=== PATIENT | male | born 1965 | race Caucasian/White ===

== ENCOUNTER 2022-02-01 14:02 | Emergency (ER) | payer OTHER, SELFPAY ==
--- NOTE | ~2022-02-01 | XR_ITS ---
EXAMINATION: XR chest 2V DATE: 02/01/2022 17:27 INDICATION: Fever TECHNIQUE: PA and lateral views of the chest are obtained. COMPARISON: None available FINDINGS: The lungs are free of acute opacities. No pleural effusion or pneumothorax. The cardiomedia stinal silhouette is normal. There is mild thoracic spondylosis. IMPRESSION: 1. No acute cardiopulmonary abnormality. Reviewed, dictated and finalized at location A. MERCE MARKETING SPECIALIST
--- NOTE | ~2022-02-01 | CT_ITS ---
EXAMINATION: CT abdomen pelvis w con DATE: 02/01/2022 18:43 INDICATION: Intractable vomiting. Elevated lipase. TECHNIQUE: Computed tomography (CT) of the abdomen and pelvis was performed with 100 cc Omnipaque 350 intravenous contrast. The dose-length product was 638.44 mGy-cm. Automated exposure control and iter ative reconstruction technique were employed. COMPARISON: None. FINDINGS: Lung bases are unremarkable. No pleural or pericardial effusion. Heart size normal. There a re at least 3 hypovascular lesions with peripheral enhancement in the left hepatic lobe. There is a f ourth lesion in the right hepatic lobe. In the absence of known malignancy these are likely benign he mangiomas. No free air or free fluid. No acute osseous abnormality. There are calcified granulomas of the spleen. The pancreas, adrenal glands are unremarkable. There are nonobstructing bilateral renal stones. No ureteral stones or hydronephrosis. Nonobstructive bowel gas pattern. No significant vascul ar abnormality. No lymphadenopathy. No acute osseous abnormality. IMPRESSION: 1. No acute abdominal abnormality. 2: At least 4 hypervascular lesions with peripheral enhancement in the liver, most likely benign parker ngiomas in the absence of known malignancy. 3: Nonobstructing bilateral nephrolithiasis. Reviewed, dictated and finalized at location A. NT SUCCESS SPECIALIST IMPRESSION: 1. No acute abdominal abnormality. 2: At least 4 hypervascular lesions with peripheral enhancement in the liver, m ost likely benign hemangiomas in the absence of known malignancy. 3: Nonobstructing bilateral nephrolithiasis.
[2022-02-01 14:27] VITALS: BP 127/74; PULSE 94; RESP 16; TEMP 37.4; O2SAT 100
[2022-02-01 15:23] LABS: Influenza A QL RT-PCR Negative (Negative); Influenza B QL RT-PCR Negative (Negative); SARS-CoV-2 RNA PCR Negative
--- NOTE | 2022-02-01 16:30 | ED.URI ---
HPI - URI/Sore Throat General Chief Complaint: Upper Respiratory Infection Stated Complaint: Fever, N/V/D and RUSH x 6 days Time Seen by Provider: 02/01/22 15:55 History of Present Illness HPI Narrative: Patient is a 56-year-old male with a history of hypertension, hyperlipidemia presenting with URI symptoms. Patient states that for the last 6 days he has had cough and nasal congestion. States he is also had an intermittent headache. Over the last several days he has also had vomiting and diarrhea. States that he started antibiotics several days ago after calling his PCP but he keeps throwing them up. He denies abdominal pain or chest pain. No numbness or weakness, lightheadedness, dysuria, flank pain, leg swelling, rashes. Related Data Allergies Allergy/AdvReac Type Severity Reaction Status Date / Time No Known Allergies Allergy Verified 02/01/22 14:04 Review of Systems Review of Systems: All systems reviewed & are unremarkable except as noted in HPI and below Exam Narrative: GENERAL: Appears uncomfortable but nontoxic and in no acute distress HEAD: Normocephalic, atraumatic. EYES: PERRLA and EOMI. ENT: Nares clear, + nasal congestion or epistaxis. Mucous membranes moist. NECK: Supple. CHEST: Clear to auscultation. No respiratory distress. HEART: Regular rate and rhythm. No murmur heard. Normal peripheral pulses. ABDOMEN: Soft, nontender, nondistended, normal active bowel sounds. EXTREMITIES: Normal range of motion. No edema. SKIN: Warm, dry, no rash. NEURO: No focal deficits. Alert and oriented x3. PSYCH: Normal mood and affect. Course Vital Signs Vital signs: Vital Signs Temperature 99.3 F 02/01/22 14:27 Pulse Rate 94 02/01/22 14:27 Respiratory Rate 16 02/01/22 14:27 Blood Pressure 127/74 02/01/22 14:27 Pulse Oximetry 100 02/01/22 14:27 Oxygen Delivery Room Air 02/01/22 14:27 Temperature 99 F 02/01/22 20:33 Pulse Rate 82 02/01/22 20:33 Respiratory Rate 18 02/01/22 20:33 Blood Pressure 109/66 02/01/22 20:33 Pulse Oximetry 97 02/01/22 20:33 Oxygen Delivery Room Air 02/01/22 14:27 MDM - URI/Sore Throat MDM Narrative Medical decision making narrative: Patient is a 56-year-old male presenting with URI symptoms. Vitals within normal limits. Patient is negative for influenza and COVID-19. Will check labs and chest x-ray. Blood work is concerning for mild hypokalemia and mildly elevated lipase. CT abdomen pelvis shows no acute intra-abdominal abnormalities. Chest x-ray shows no acute abnormalities. Patient received migraine cocktail and reports improvement in his symptoms. He is tolerating p.o. intake. Patient has an appointment with his PCP in 2 days. Discussed appropriate supportive care and return precautions. Patient voiced understanding and is agreeable with plan. Discharged in stable condition. Lab Data 02/01/22 16:50 02/01/22 16:50 Labs: Lab Results 02/01/22 02/01/22 02/01/22 Range/Units 14:38 16:30 16:50 WBC 4.6 (4.5-10.0) K/mm3 RBC 3.85 L (4.6-6.20) M/mm3 Hgb 11.9 L (14.0-18.0) g/dL Hct 34.7 L (42.0-52.0) % MCV 90.1 (80-100) fl MCH 30.9 (26-34) pg MCHC 34.3 (32-36) g/dl RDW 11.6 (11.5-14.5) % Plt Count 122 L (150-375) k/mm3 MPV 9.3 (7.4-10.4) fl Immature Gran % (Auto) Not Reportable Neut % (Auto) Not Reportable Lymph % (Auto) Not Reportable Nelson % (Auto) Not Reportable Eos % (Auto) Not Reportable Baso % (Auto) Not Reportable Lymph # (Auto) Not Reportable Nelson # (Auto) Not Reportable Eos # (Auto) Not Reportable Baso # (Auto) Not Reportable Abs Immat Gran (auto) Not Reportable Absolute Neuts (auto) Not Reportable Absolute Nucleated RBC Not Reportable Total Counted 100 Neutrophils % (Manual) 76 H (46-73) % Band Neutrophils % 6 (0-6) % Lymphocytes % (Manual) 13.0 L (18-44) % Mo
[2022-02-01] MEDS: SODIUM CHLORIDE 0.9% IV 1,000 ML 999 ML IV CONT ×2 (16:44→19:06)
[2022-02-01] MEDS: KETOROLAC 15 MG/ML VIAL (*BKC) IV PUSH ×2 (16:45→19:07)
[2022-02-01 16:52] VITALS: TEMP 38.6
[2022-02-01 17:01] LABS: Hematocrit 34.7 % (42.0-52.0); Hemoglobin 11.9 g/dL (14.0-18.0); Mean Corpuscular HGB Conc 34.3 g/dl (32-36); Mean Corpuscular Hemoglobin 30.9 pg (26-34); Mean Corpuscular Volume 90.1 fl (80-100); Mean Platelet Volume 9.3 fl (7.4-10.4); Platelet Count Result 122 k/mm3 (150-375); Red Blood Count 3.85 M/mm3 (4.6-6.20); Red Cell Distribution Width 11.6 % (11.5-14.5); White Blood Count 4.6 K/mm3 (4.5-10.0)
[2022-02-01 17:17] LABS: Alanine Aminotransferase 141 U/L (6-50); Albumin Level 3.8 g/dL (3.5-5.1); Alkaline Phosphatase 131 U/L (38-126); Anion Gap 4 mmol/L (8-16); Aspartate Amino Transferase 106 U/L (17-59); Bilirubin,Total 0.6 mg/dL (0.2-1.3); Blood Urea Nitrogen 18 mg/dL (9-20); Carbon Dioxide 30 mmol/L (22-30); Chloride 98 mmol/L (98-107); Estimated CRCL calculation 63 ml/min; Estimated Glomerular Filt Rate > 60; Glucose 158 mg/dL (65-110); Potassium 3.3 mmol/L (3.4-5.0); Sodium 132 mmol/L (137-145)
[2022-02-01 17:20] LABS: Band Neutrophils Percent 6 % (0-6); Basophils Absolute Manual 0.04 K/mm3 (0.0-0.1); Basophils Percent Manual 1 % (0-1); Lymphocytes Absolute Manual 0.59 K/mm3 (1.1-4.5); Monocytes Absolute Manual 0.18 K/mm3 (0.1-0.90); Monocytes Percent Manual 4 % (3-9); Neutrophils Absolute Manual 3.77 K/mm3 (1.3-6.7); Neutrophils Percent Manual 76 % (46-73); Schistocytes None Seen (NORMAL); Total Cells Counted 100
[2022-02-01 18:03] LABS: Lipase 575 U/L (23-300)
[2022-02-01] MEDS: diphenhydrAMINE HCl INJ 50 MG/ML VIAL IV PUSH (19:08)
[2022-02-01] MEDS: PROCHLORPERAZINE EDISYLATE 10 MG/2 ML VIAL IV PUSH (19:09)
[2022-02-01] MEDS: DOXYCYCLINE HYCLATE 100 MG TABLET PO (20:07)
[2022-02-01 20:33] VITALS: BP 109/66; PULSE 82; RESP 18; TEMP 37.2; O2SAT 97
== END 2022-02-01 21:20 | disposition home or self-care (01) ==
PROVIDERS: Emergency Provider Emergency Medicine; PCP Internal Medicine
DX: J06.9 Acute upper respiratory infection, unspecified (principal); R11.2 Nausea with vomiting, unspecified; I10 Essential (primary) hypertension; E78.5 Hyperlipidemia, unspecified; Z20.822 Contact with and (suspected) exposure to COVID-19
CPT/HCPCS: 36415; 71046; 74177; 80053; 83690; 85025; 87636; 96361; 96365; 96375; 99284; A9270; J0131; J0780; J1200; J1885; J7030; Q9967

== ENCOUNTER 2022-02-04 17:07 | Observation (INO) | payer OTHER, SELFPAY ==
--- NOTE | ~2022-02-04 | MR_ITS ---
MRI of the abdomen: Clinical indication: Elevated lipase, hepatomegaly, hypervascular lesions. Technique: Coronal SSFSE ARC, WATER:coronal LAVA-FLEX, Coronal 2D FIESTA FatSat, Axial SSFSE BH ARC, Axial 3D DualEcho BH, Axial SSFSE-IR, Axial DWI b=500, Axial 2D FIESTA FatSat, pre and dynamic postco ntrast Axial LAVA ARC, postcontrast Coronal In and Opposed phase LAVA FLEX COMPARISON: CT scan dated 02/05/2022 Findings: Gallbladder is unremarkable. The common bile duct is normal in course and caliber. No filli ng defects are seen within the CBD. No evidence of intrahepatic biliary ductal dilatation. The pancre atic duct is normal in size. Several scattered T2 hyperintense, T1 hypointense hepatic lesions are present, which demonstrate disc ontinuous peripheral nodular postcontrast enhancement with progressive fill in over time. These are m ost consistent with hemangiomas. Largest lesion is in the left hepatic lobe, measuring 3.5 cm in diam eter. Spleen, pancreas, adrenals, kidneys appear normal. The aorta and the paraaortic regions appear normal . Impression: Multiple hepatic hemangiomas, which correlate with findings on recent CT scan. Reviewed, dictated and finalized at location [] RT CLERK Impression: Multiple hepatic hemangiomas, which correlate with findings on recent CT scan.
--- NOTE | ~2022-02-04 | CT_ITS ---
EXAMINATION: CT abdomen pelvis w con DATE: 02/05/2022 01:48 INDICATION: Nausea and vomiting. Elevated lipase. Epigastric tenderness. TECHNIQUE: Computed tomography (CT) of the abdomen and pelvis was performed with 100 mL Omnipaque 350 intravenous contrast. Automated exposure control and iterative reconstruction technique were employe d. The dose-length product was 632.64 mGy-cm. COMPARISON: CT abdomen and pelvis 02/01/2022, 03/28/2006 FINDINGS: The visualized portions of the lung bases demonstrate mild atelectasis. A calcified left marychuy ng nodule is consistent with old granulomatous disease. No pleural effusion. The heart size is normal . No pericardial effusion. There are approximately five masses with hyperenhancement in the liver marlene suring up to 3.3 cm. The gallbladder is normal. Calcifications in the spleen are consistent with old granulomatous disease. The pancreas and adrenal glands are normal. There are cysts in the kidneys marlene suring up to 7 mm on the left. There are 3 mm and 2 mm stones in right kidney. There is a 2 mm stone in left kidney. The prostate is mildly enlarged. There is prominent fat in the inguinal canals that m ay be hernias. There are no dilated loops of bowel. There are likely changes of appendectomy. There a re no pathologically enlarged lymph nodes. There is no free intraperitoneal fluid. There is an umbili mamadou hernia containing fat. There is mild thoracolumbar spondylosis. IMPRESSION: 1. Normal pancreas. 2. Hyperenhancing liver masses measuring up to 3.3 cm . In the absence of known malignancy or chronic liver disease, these findings are most likely hemangiomas. Reviewed, dictated and finalized at location A. HOLOGY ASSISTANT IMPRESSION: 1. Normal pancreas. 2. Hyperenhancing liver masses measuring up to 3.3 cm . In the absence of known malignancy or chronic liver disease, these findings are most likely hemangioma s.
[2022-02-04 17:10] VITALS: BP 132/78; PULSE 77; RESP 18; TEMP 37.2; O2SAT 100
[2022-02-04 17:54] LABS: Alanine Aminotransferase 79 U/L (6-50); Albumin Level 3.6 g/dL (3.5-5.1); Alkaline Phosphatase 115 U/L (38-126); Anion Gap 4 mmol/L (8-16); Aspartate Amino Transferase 55 U/L (17-59); Bilirubin,Total 0.6 mg/dL (0.2-1.3); Blood Urea Nitrogen 15 mg/dL (9-20); Carbon Dioxide 31 mmol/L (22-30); Chloride 98 mmol/L (98-107); Estimated CRCL calculation 71 ml/min; Estimated Glomerular Filt Rate > 60; Glucose 143 mg/dL (65-110); Lipase 786 U/L (23-300); Potassium 3.5 mmol/L (3.4-5.0); Sodium 133 mmol/L (137-145)
[2022-02-04 18:35] LABS: Hematocrit 33.3 % (42.0-52.0); Hemoglobin 11.4 g/dL (14.0-18.0); Mean Corpuscular HGB Conc 34.2 g/dl (32-36); Mean Corpuscular Hemoglobin 31.2 pg (26-34); Mean Corpuscular Volume 91.2 fl (80-100); Mean Platelet Volume 9.6 fl (7.4-10.4); Platelet Count Result 221 k/mm3 (150-375); Red Blood Count 3.65 M/mm3 (4.6-6.20); Red Cell Distribution Width 11.8 % (11.5-14.5); White Blood Count 8.2 K/mm3 (4.5-10.0)
[2022-02-04 19:27] LABS: Band Neutrophils Percent 5 % (0-6); Lymphocytes Absolute Manual 2.46 K/mm3 (1.1-4.5); Monocytes Absolute Manual 1.14 K/mm3 (0.1-0.90); Monocytes Percent Manual 14 % (3-9); Neutrophils Absolute Manual 4.59 K/mm3 (1.3-6.7); Neutrophils Percent Manual 51 % (46-73); Total Cells Counted 100
[2022-02-04 19:28] LABS: Platelet Estimate Adequate (Adequate); Schistocytes None Seen (NORMAL)
[2022-02-05] VITALS (32 sets, daily range): BP systolic 98–130; BP diastolic 54–91; PULSE 69–85; RESP 18–22; TEMP 36.1–36.8; O2SAT 92–100
--- NOTE | 2022-02-05 01:13 | ED.GENADULT ---
HPI - General Adult General Chief complaint: Nausea/Vomiting/Diarrhea <PORSHA Wilkins Last Filed: 02/05/22 04:18> Stated complaint: DEHYDRATED, PCP WANTS HIM ADMITTED <PORSHA Wilkins Last Filed: 02/05/22 04:18> Time Seen by Provider: 02/05/22 00:23 <PORSHA Wilkins Last Filed: 02/05/22 04:18> Source: patient <PORSHA Wilkins Last Filed: 02/05/22 04:18> Mode of arrival: ambulatory <PORSHA Wilkins Last Filed: 02/05/22 04:18> Limitations: no limitations <PORSHA Wilkins Last Filed: 02/05/22 04:18> History of Present Illness HPI narrative: Patient is a 56-year-old male who presents to the ED with report of nausea and vomiting. Patient reports he first became sick on 01/26 with nausea, vomiting, headaches, fevers. He was seen in the ED on 02/01, tested negative for COVID/flu. He was noted to have a mildly elevated lipase, but CT scan of his abdomen pelvis was negative. Did show hypervascular lesions of liver. Patient was given IV fluids in the ED and discharged home. Patient reports the nausea and vomiting has since persisted. He has been taking Zofran at home. He is able to keep some down some fluids. Today, he saw his PCP and was noted to have tenderness on exam to his upper abdomen. He was then referred to the ED again to r/o pancreatitis and be admitted for further w/u. He also reports having diarrhea, denies rectal bleeding, urinary sx's, CP, SOB. <PORSHA Wilkins Last Filed: 02/05/22 04:18> Related Data Home medications: Home Medications Medication Instructions Recorded Confirmed rosuvastatin 10 mg tablet 10 mg PO DAILY 02/05/22 02/05/22 valsartan 320 1 tablet PO DAILY 02/05/22 02/05/22 mg-hydrochlorothiazide 12.5 mg tablet <PORSHA Wilkins Last Filed: 02/05/22 04:18> Allergies/adverse reactions: Allergies Allergy/AdvReac Type Severity Reaction Status Date / Time No Known Allergies Allergy Verified 02/01/22 14:04 <Socorro Abdul PA-C - Last Filed: 02/05/22 04:18> Review of Systems Review of Systems: CONSTITUTIONAL: Reports fevers. EYES: Denies visual changes, redness, or discharge. ENT: Denies rhinorrhea, congestion, sore throat. CARDIOVASCULAR: Denies chest pain. RESPIRATORY: Denies dyspnea. GASTROINTESTINAL: Reports N/V/D. Denies constipation. GENITOURINARY: Denies dysuria or hematuria. SKIN: Denies rash or itching. MUSCULOSKELETAL: Denies back pain, joint pain, or myalgia. NEUROLOGIC: Reports RUSH. Denies numbness, or weakness. <Socorro Abdul PA-C - Last Filed: 02/05/22 04:18> All systems reviewed & are unremarkable except as noted in HPI and below <Socorro Abdul PA-C - Last Filed: 02/05/22 04:18> [facility] Past Medical History Medical History: Medical History (Updated 02/05/22 @ 14:54 by Ana Cross PA-C) Hyperlipidemia Hypertension Migraine <Socorro Abdul PA-C - Last Filed: 02/05/22 04:18> Surgical History Surgical History: Surgical History No pertinent past surgical history <Socorro Abdul PA-C - Last Filed: 02/05/22 04:18> Family History Family History: Family History (Updated 02/05/22 @ 14:48 by Ana Cross PA-C) Father Diabetes mellitus Heart disease Sibling Diabetes mellitus Grandparent Diabetes mellitus <Socorro Abdul PA-C - Last Filed: 02/05/22 04:18> Social History Social History: Social History (Updated 02/05/22 @ 14:49 by Ana Cross PA-C) Social History: Patient currently lives in a house with his . Patient has 2 children and no pets. Patient denies tobacco use, alcohol use and drug use. Years smoked: 0 Smoking status: Never smoker Alcohol intake: never Substance use: never Lack of Transportation: No Lack of Food: Never True Current Housing: [place]
[2022-02-05 01:57] LABS: Add Urine Microscopic? YES; Appearance Urine Turbid (Clear); Bilirubin Urine 1+ (Negative); Blood Urine Negative (Negative); Color Urine Brown (Yellow); Glucose Urine UA Negative (Negative); Ketones Urine Trace mg/dL (Negative); Leukocyte Esterase Ur Negative LEU/UL (Negative); Nitrate Urine Negative (Negative); Protein Urine 1+ mg/dL (Negative); Specific Grav Ur 1.025 (1.001-1.035); Urobilinogen Urine 0.2 mg/dL (<2.0); pH Urine 5.5 (5.0-9.0)
[2022-02-05 02:02] LABS: Mucus Urine Heavy /lpf
[2022-02-05] MEDS: SODIUM CHLORIDE 0.9% IV 1,000 ML 999 ML IV CONT ×2 (02:06→03:27)
[2022-02-05] MEDS: ONDANSETRON INJ 4 MG/2 ML VIAL IV PUSH (02:06)
[2022-02-05 02:31] LABS: Influenza A QL RT-PCR Negative (Negative); Influenza B QL RT-PCR Negative (Negative); SARS-CoV-2 RNA PCR Negative
[2022-02-05] MEDS: BELLADONNA ALK/PHENOB ELIX 10 ML, MAG HYDROX/ALUMINUM HYD/SIMETH 30 ML, LIDOCAINE HCL 2... PO (05:00)
[2022-02-05] MEDS: FAMOTIDINE 20 MG/2 ML VIAL IV PUSH ×3 (05:01→20:55)
--- NOTE | 2022-02-05 07:23 | ADMGEN ---
This patient, Kei L Palma, was admitted to [facility] Surg Room 307-01. Patient/family oriented to hospital policies and general routines including ID bracelet, bed and alarms, visiting hours, pain management, procedures, bathroom and other care routines, personal items, smoking policy, room service/diet, and visiting hours. Information on how to activate the Rapid Response Team has been discussed. Patient/Family are encouraged to report perceived risks to care and to ask questions if they do not understand what they are told or what they should do.
[2022-02-05 07:34] LABS: Hepatitis B Surface Antigen Negative (Negative)
[2022-02-05 07:40] LABS: HAV RESULT Negative (Negative); Hepatitis B Core IgM Result Negative (Negative)
[2022-02-05 07:51] LABS: Hepatitis C Virus Antibody Negative (Negative)
--- NOTE | 2022-02-05 08:15 | WPDGICN ---
Assessment and Plan Assessment and plan (1) Elevated lipase: Code(s): R74.8 - Abnormal levels of other serum enzymes Status: Acute Assessment and Plan: CT shows no evidence of pancreatitis. He does not drink alcohol. No stones are seen on imaging. Lipase can be elevated in this range from vomiting. Therefore it is more likely due to his vomiting then due to acute pancreatitis. MRCP will be done to help elucidate (2) Transaminitis: Code(s): R74.01 - Elevation of levels of liver transaminase levels Status: Acute Assessment and Plan: The etiology of his transaminitis is unknown. Hepatitis serology has come back negative. Given that this all started with a headache and a fever I think that is still possible that a viral illness is at play. (3) Nausea and vomiting: Qualifiers: Vomiting type: unspecified Qualified Code(s): R11.2 - Nausea with vomiting, unspecified Code(s): R11.2 - Nausea with vomiting, unspecified Status: Acute Assessment and Plan: He has not vomited last 2 days but has a poor appetite. He ate a few crackers yesterday. He thinks he could tolerate some liquids. The nausea and vomiting began at about the same time as his headache I will check on results of the MRCP later. He may need EGD. I will try him on a liquid diet today. (4) Severe headache: Code(s): R51.9 - Headache, unspecified Status: Acute Assessment and Plan: He has not had a significant relief of his headache yet. Interestingly, the other 3 phallus that he has been hunting with also have headaches and many the other symptoms including fatigue. (5) Febrile illness: Code(s): R50.9 - Fever, unspecified Status: Acute Assessment and Plan: I suspect this is probably viral, given the fact that his 3 hunting friends have similar illness. One of his friends sent a text this morning while I was with the patient regarding Q fever. It certainly would fit the picture. GI Consult Note Consult date/time: 02/05/22 08:15 HPI: Kei Palma is a 56 year old male was admitted with persistent headache nausea and vomiting. This all started about 10 days ago on a Friday. He and his 3 friends had been hunting and afterwards the all began have similar symptoms. He came to the emergency room a few days ago for his headache and was sent home with nausea medicine. He is also taking doxycycline. He does not recall any tick bites which would be rare this time of year. He had a fever the 1st few days. His headache has not improved. He he has medicine that he has taken over the years for migraines and had tried that. He used to have migraines is quite often when he was much younger. He has had no mental status changes or confusion but has feeling fatigued and a lack of energy. He denies abdominal pain. His stomach has been upset any had been vomiting giving him some discomfort near the ribcage. He has never had an ulcer. He is not using NSAIDs regularly. He has no prior history of liver disease. Review of Systems Review of Systems: All systems reviewed & are unremarkable except as noted in HPI and below PMFSH Past Medical History Medical History No pertinent past medical history Surgical History Surgical History No pertinent past surgical history Family History Family History Father Diabetes mellitus Sibling Diabetes mellitus Social History Social History Smoking status: Never smoker Alcohol intake: never Substance use: never Lack of Transportation: No Lack of Food: Never True Current Housing: I Have Housing Concerned About Future Housing: No Difficulty Paying Gas/Electric Bills: No Difficulty Paying for Meds: No Curr
[2022-02-05 08:57] LABS: Monoscreen Negative (Negative); Negative Monotest Control Negative (Negative); Positive Monotest Control Positive (Positive)
[2022-02-05] MEDS: LORazepam INJ (*CRX) 2 MG/ML VIAL 0.5 MG IV PUSH (08:58)
[2022-02-05] MEDS: SODIUM CHLORIDE 0.9% IV 1,000 ML 150 ML IV CONT ×2 (10:12→17:54)
[2022-02-05] MEDS: hydroCHLOROthiazide 12.5 MG CAPSULE PO (10:13)
[2022-02-05] MEDS: ROSUVASTATIN 10 MG TABLET PO (10:13)
[2022-02-05] MEDS: VALSARTAN 160 MG TABLET 320 MG PO (10:14)
--- NOTE | 2022-02-05 14:35 | PM.IMHP ---
H&P: HPI History of Present Illness Date/Time: 02/05/22 14:36 Chief Complaint: Nausea vomiting Narrative: 56-year-old male with a history of hypertension and a hyperlipidemia presents to the ED on 02/05/2022 with complaints of nausea vomiting. Patient in the room while being interviewed and answers most of the questions. stated that patient developed a fever on 01/26/2022 and has had a fever up until 02/04/2022. The highest the fever has got is 103.4. Patient developed nausea and vomiting as well as neck, back and leg pain, diarrhea, cough and headache 3 days after fever developed. Patient was seen in the ED on 02/01 and was given IV fluids, migraine cocktail and anti medics. Patient has taken nedm-gnl-daaedlv Tylenol and Advil as well as Sudafed. Patient's labs revealed slightly elevated lipase and liver enzymes. Hepatitis panel negative. CT abdomen and pelvis revealed normal pancreas and likely hemangioma as measuring 3.3 cm on the liver. GI consulted in the ED and scheduled a MRCP to rule out acute pancreatitis although it is likely that slight increase in lipase is due to vomiting. MRCP revealed normal pancreas. Patient being managed with IV fluids, antiemetics and pain medicine. Patient started on ceftriaxone 1 g due to abnormal UA. Awaiting urine culture results. Patient denies current nausea and vomiting, diarrhea, chest pain, shortness a breath and fever. Patient does states that he has had a mild headache. Review of Systems Review of Systems: All systems reviewed & are unremarkable except as noted in HPI and below PMFSH Past Medical History Medical History (Updated 02/05/22 @ 14:54 by Ana Cross PA-C) Hyperlipidemia Hypertension Migraine Surgical History Surgical History No pertinent past surgical history Family History Family History (Updated 02/05/22 @ 14:48 by Ana Cross PA-C) Father Diabetes mellitus Heart disease Sibling Diabetes mellitus Grandparent Diabetes mellitus Social History Social History (Updated 02/05/22 @ 14:49 by Ana Cross PA-C) Social History: Patient currently lives in a house with his . Patient has 2 children and no pets. Patient denies tobacco use, alcohol use and drug use. Years smoked: 0 Smoking status: Never smoker Alcohol intake: never Substance use: never Lack of Transportation: No Lack of Food: Never True Current Housing: I Have Housing Concerned About Future Housing: No Difficulty Paying Gas/Electric Bills: No Difficulty Paying for Meds: No Currently Unemployed: No Education: High School Diploma/GED Difficulty w/ Childcare or Family Care: No Spiritual care concerns: No Meds Home Medications and Allergies Home Medications Medication Instructions Recorded Confirmed Type doxycycline hyclate 100 mg capsule 100 mg PO Q12H 5 days #10 caps 02/01/22 02/05/22 Rx ondansetron 4 mg disintegrating 4 mg PO Q8H PRN nausea and 02/01/22 02/05/22 Rx tablet vomiting #20 tabs rosuvastatin 10 mg tablet 10 mg PO DAILY 02/05/22 02/05/22 History valsartan 320 1 tablet PO DAILY 02/05/22 02/05/22 History mg-hydrochlorothiazide 12.5 mg tablet Allergies Allergy/AdvReac Type Severity Reaction Status Date / Time No Known Allergies Allergy Verified 02/01/22 14:04 Vital Signs Vital Signs - 24 hr 02/04/22 17:10 02/05/22 02:04 02/05/22 03:30 Temperature 98.9 F Pulse Rate 77 85 Respiratory Rate 18 20 Blood Pressure 132/78 119/78 Pulse Oximetry 100 95 97 Oxygen Delivery Room Air Room Air 02/05/22 03:31 02/05/22 03:45 02/05/22 03:46 Temperature Pulse Rate Respiratory Rate Blood Pressure 99/57 L 117/68 Pulse Oximetry 97 97 97 Oxygen Delivery 02/05/22 04:00 02/05/22 04:01 02/05/22 04:15 Temperature Pulse Rate Respiratory Rate Blood Pressure 98/55 L Pulse Oximetry 95 96 95 Oxygen Deliv
[2022-02-06] MEDS: SODIUM CHLORIDE 0.9% IV 1,000 ML 150 ML IV CONT ×3 (00:47→14:17)
[2022-02-06 06:00] VITALS: BP 114/73; PULSE 77; RESP 16; TEMP 36.4; O2SAT 98
[2022-02-06 07:01] LABS: Hematocrit 28.4 % (42.0-52.0); Hemoglobin 9.7 g/dL (14.0-18.0); Mean Corpuscular HGB Conc 34.2 g/dl (32-36); Mean Corpuscular Hemoglobin 30.8 pg (26-34); Mean Corpuscular Volume 90.2 fl (80-100); Mean Platelet Volume 9.1 fl (7.4-10.4); Platelet Count Result 242 k/mm3 (150-375); Red Blood Count 3.15 M/mm3 (4.6-6.20); Red Cell Distribution Width 11.8 % (11.5-14.5); White Blood Count 6.4 K/mm3 (4.5-10.0)
[2022-02-06 07:18] LABS: Alanine Aminotransferase 48 U/L (6-50); Albumin Level 2.9 g/dL (3.5-5.1); Alkaline Phosphatase 82 U/L (38-126); Anion Gap 2 mmol/L (8-16); Aspartate Amino Transferase 36 U/L (17-59); Bilirubin,Total 0.4 mg/dL (0.2-1.3); Blood Urea Nitrogen 12 mg/dL (9-20); Calcium 7.6 mg/dL (8.4-10.2); Carbon Dioxide 27 mmol/L (22-30); Chloride 105 mmol/L (98-107); Estimated CRCL calculation 85 ml/min; Estimated Glomerular Filt Rate > 60; Glucose 125 mg/dL (65-110); Lipase 676 U/L (23-300); Potassium 3.6 mmol/L (3.4-5.0); Sodium 134 mmol/L (137-145)
[2022-02-06] MEDS: FAMOTIDINE 20 MG/2 ML VIAL IV PUSH (09:25)
[2022-02-06] MEDS: ROSUVASTATIN 10 MG TABLET PO (09:30)
--- NOTE | 2022-02-06 11:40 | WPDGIPROGNO ---
Progress Note: A&P Assessment and Plan (1) Elevated lipase: Code(s): R74.8 - Abnormal levels of other serum enzymes Status: Acute Assessment and Plan: CT shows no evidence of pancreatitis. He does not drink alcohol. No stones are seen on imaging. Lipase can be elevated in this range from vomiting. Therefore it is more likely due to his vomiting then due to acute pancreatitis. MRCP will be done to help elucidate 02/06/2022 MRCP is normal with respect to the pancreas and biliary system. He clarifies that the lesion seen on CT scan were in fact hemangiomas of the liver. These would not cause any symptoms. (2) Transaminitis: Code(s): R74.01 - Elevation of levels of liver transaminase levels Status: Acute Assessment and Plan: The etiology of his transaminitis is unknown. Hepatitis serology has come back negative. Given that this all started with a headache and a fever I think that is still possible that a viral illness is at play. Monospot also is negative. I will check for EBV virus. (3) Nausea and vomiting: Qualifiers: Vomiting type: unspecified Qualified Code(s): R11.2 - Nausea with vomiting, unspecified Code(s): R11.2 - Nausea with vomiting, unspecified Status: Acute Assessment and Plan: He has not vomited last 2 days but has a poor appetite. He ate a few crackers yesterday. He thinks he could tolerate some liquids. The nausea and vomiting began at about the same time as his headache I will check on results of the MRCP later. He may need EGD. I will try him on a liquid diet today. 02/06/2022 he has no nausea today. He is hungry and wishes to eat. I will order regular diet. (4) Severe headache: Code(s): R51.9 - Headache, unspecified Status: Acute Assessment and Plan: He has not had a significant relief of his headache yet. Interestingly, the other 3 phallus that he has been hunting with also have headaches and many the other symptoms including fatigue. 02/06/2022 headache is improving. (5) Febrile illness: Code(s): R50.9 - Fever, unspecified Status: Acute Assessment and Plan: I suspect this is probably viral, given the fact that his 3 hunting friends have similar illness. One of his friends sent a text this morning while I was with the patient regarding Q fever. It certainly would fit the picture. Subjective Date/time seen: Kei Palma is a 56 year old male was admitted with persistent headache nausea and vomiting.? This all started about 10 days ago on a Friday.? He and his 3 friends had been hunting and afterwards the all began have similar symptoms.? He came to the emergency room a few days ago for his headache and was sent home with nausea medicine.? He is also taking doxycycline.? He does not recall any tick bites which would be rare this time of year.? He had a fever the 1st few days.? His headache has not improved.? He he has medicine that he has taken over the years for migraines and had tried that.? He used to have migraines is quite often when he was much younger.? He has had no mental status changes or confusion but has feeling fatigued and a lack of energy.? He denies abdominal pain.? His stomach has been upset any had been vomiting giving him some discomfort near the ribcage.? He has never had an ulcer.? He is not using NSAIDs regularly.? He has no prior history of liver disease. 02/06/22 11:40 he slept fairly well. He has no gastrointestinal symptoms. He denies abdominal pain Or nausea. He is hungry and wishes to eat. Exam Const: General: alert and well nourished Nutritional Appearance: well nourished Orientation/consciousness: patient oriented x3 Resp: Auscultation: clear to auscultation bilaterally Cardio: Rhythm: regular rhythm GI: Auscultation: normal bowel sounds Neuro: General: patient oriented x3 Objective Data Vital Signs Vital Signs: Vital Signs - 24 hr 02/05/22 14:00
[2022-02-06 14:00] VITALS: BP 120/80; PULSE 81; RESP 22; TEMP 36.8; O2SAT 99
[2022-02-06] MEDS: ACETAMINOPHEN 325 MG TABLET 650 MG PO (14:12)
--- NOTE | 2022-02-06 16:01 | PM.DS ---
DS: Admitting Diagnosis Discharge Date 02/06/2022 1601 Admitting Diagnosis Nausea vomiting and diarrhea Febrile illness, unspecified Abnormal urinalysis Migraine DS: Discharge Diagnosis Discharge Diagnosis (1) Nausea vomiting and diarrhea: Code(s): R11.2 - Nausea with vomiting, unspecified; R19.7 - Diarrhea, unspecified Status: Acute Assessment and Plan: White blood cell count within normal limits 02/01/2022 alk phos, AST and ALT elevated. Hepatitis panel negative. Lipase 786 trended and down to 676 CT abdomen pelvis: Normal pancreas. 3.3 cm liver mass likely hemangioma in the absence of no malignancy or liver disease. MRCP: Multiple hepatic hemangiomas. Normal pancreas. Treated with IV fluids and antiemetics. GI consulted. EBV labs and Q fever labs drawn (2) Febrile illness: Code(s): R50.9 - Fever, unspecified Status: Acute Assessment and Plan: as above. (3) Abnormal urinalysis: Code(s): R82.90 - Unspecified abnormal findings in urine Status: Acute Assessment and Plan: UA: Heavy mucus, 4-6 WBC, 6-10 RBC Urine culture without growth and antibiotics stopped 02/06. He was treated with IV 1 g ceftriaxone (4) Migraine: Qualifiers: Migraine type: unspecified Code(s): G43.909 - Migraine, unspecified, not intractable, without status migrainosus Status: Acute Assessment and Plan: Presumed secondary to acute febrile illness. Treated with tylenol and Toradol p.r.n. DS: Summary Hospital Course Reason for hospitalization: Nausea and vomiting Hospital Course: Kei Palma is a 56-year-old male with a history of hypertension and hyperlipidemia. He presented to the ED on 02/05/2022 with complaints of nausea and vomiting.?The patient and reported he developed a fever on 01/26/2022 that persisted until 02/04/2022.? At the highest, his temperature was 103.4F.? He then developed nausea and vomiting, as well as neck, back and leg pain, diarrhea, cough and headache for 3 days.? He was seen in the ED on 02/01 and given IV fluids, migraine cocktail and antiemetics.? Patient was taking [id number] Tylenol, Advil and Sudafed.? Patient's labs revealed slightly elevated lipase and liver enzymes.? Hepatitis panel negative.? CT abdomen and pelvis revealed normal pancreas and likely hemangioma as measuring 3.3 cm on the liver.? GI was consulted in the ED and scheduled an MRCP to rule out acute pancreatitis.? MRCP revealed normal pancreas.? He was admitted for IV hydration and supportive care with antiemetics and analgesics.?UA also showed some WBC so the was started on ceftriaxone 1 g for possible UTI, pending urine culture results.? The patient had persistent symptoms and was treated with famotidine IV, Zofran IV, Ketorolac and IV acetaminophen. Ceftriaxone was stopped 02/06 and urine culture was negative. The patient's symptoms resolved on 02/06 and he was able to tolerate regular consistency foods. He did at that time report 3 other friends with similar symptoms and one of his friends mentioned Q fever. EBV and Q fever panels were drawn on 02/06 and pending results at the time of discharge. His lipase was 676 on discharge, slightly decreased from admission, this was thought to be secondary to acute vomiting. He will have repeat lipase level in 2 weeks. He was discharged home in stable condition. Status at Discharge Cognitive/behavioral status at discharge: Alert and oriented x4, pleasant, tolerating diet Functional status at discharge: independent ambulation Overall status at discharge: patient is back to baseline Time Spent with Patient Time attestation: Total time spent providing and/or coordinating discharge services: Time spent: Greater than 30 minutes Exam Narrative: GENERAL: no acute distress, ambulating in the room HEENT: Normocephalic. sclera anicteric. Pupils equal and round. moist mucous membranes NECK: no lymphadenopathy
== END 2022-02-06 16:50 | disposition home or self-care (01) ==
LOC: ANHED 02-05 04:18 → ANH3MEDSUR 02-05 07:53
PROVIDERS: Emergency Medicine; Internal Medicine Critical Care Medicine; Internal Medicine Gastroenterology; Nurse Practitioner Family; Physician Assistant; Admitting Provider Internal Medicine; Emergency Provider Emergency Medicine; PCP Internal Medicine; Visit Provider Family Medicine
DX: D18.09 Hemangioma of other sites (principal); R74.8 Abnormal levels of other serum enzymes; R74.01 Elevation of levels of liver transaminase levels; E78.5 Hyperlipidemia, unspecified; I10 Essential (primary) hypertension; R50.9 Fever, unspecified; G43.909 Migraine, unspecified, not intractable, without status migrainosus; Z20.822 Contact with and (suspected) exposure to COVID-19; R82.90 Unspecified abnormal findings in urine; E66.9 Obesity, unspecified; Z68.30 Body mass index [BMI] 30.0-30.9, adult; Z79.899 Other long term (current) drug therapy
CPT/HCPCS: 36415; 74177; 74183; 76376; 80053; 80074; 81001; 83690; 85025; 85027; 86308; 86638; 86664; 86665; 87086; 87636; 96361; 96365; 96367; 96374; 96375; 96376; 99285; A9270; A9577; G0378; J0131; J0696; J2060; J2405; J7030; Q9967